=== PATIENT | male | born 1990 | race Caucasian/White ===

== ENCOUNTER 2022-07-17 03:27 | Outpatient (CLI) | payer MEDICAID, SELFPAY ==
[2022-07-17 13:54] LABS: Calculated LDL 58 mg/dL (<100); Cholesterol 140 mg/dL (<200); HDL Cholesterol 58 mg/dL (40-60); Triglyceride 123 mg/dL (<150)
[2022-07-17 14:25] LABS: Hemoglobin A1C 5.4 % (<5.7)
== END 2022-07-17 03:28 | disposition home or self-care (01) ==
LOC: LBO 03:28
PROVIDERS: PCP Nurse Practitioner Family; Visit Provider Nurse Practitioner Family
DX: Z13.220 Encounter for screening for lipoid disorders (principal); Z13.1 Encounter for screening for diabetes mellitus
CPT/HCPCS: 36415; 80061; 83036

== ENCOUNTER 2025-07-27 13:46 | Emergency (ER) | payer OTHER, SELFPAY ==
[2025-07-27] VITALS (15 sets, daily range): BP systolic 131–152; BP diastolic 91–97; PULSE 61–93; RESP 13–18; O2SAT 95–98
--- NOTE | 2025-07-27 13:45 | RT.EKG_ITS ---
APPROVED REPORT Exam: Resting ECG Reason for Exam: Palpatations Patient Location: E HR:84 bpm ECG Measurements Heart Rate 84 AXIS IA 148 P 32 QRSd 96 QRS 8 QT 372 T 20 QTc 440 Conclusion Sinus rhythm...normal P axis, V-rate 60- 99
--- NOTE | 2025-07-27 14:00 | DI.RAD_ITS ---
Exam(s) XR PORTABLE CHEST AP EXAM: XR PORTABLE CHEST AP CLINICAL HISTORY: chest pain TECHNIQUE: 2D digital imaging was performed of the chest. One image was obtained. An AP view was obtained. COMPARISON: No exams were available for comparison FINDINGS: MEDIASTINUM: Normal. HEART: Normal. PULMONARY VASCULATURE: Normal. LUNGS: Clear. PLEURAL SPACE: No pleural effusion or pneumothorax. BONE:Within normal limits for the patient's age. OTHER FINDINGS:Normal. IMPRESSION: No acute pulmonary findings. DATA REPOSITORY: RADIATION DOSE DELIVERED:
--- NOTE | 2025-07-27 14:09 | W.ED.GENAD ---
Discharge Plan Disposition Patient Disposition: Home Condition: Stable Discharge Details Clinical Impression: Chest pain Primary Care Provider: Arnaud Bagley ED Provider: Hernesto Echeverria Home Meds and New Rx's Prescriptions: No Action No Known Home Meds Discharge Instructions Additional Instructions: Your lab work, EKG and chest x-ray were reassuring today. I would recommend following up with your primary care provider for an outpatient stress test. If you feel more ill, have severe worsening pain or new symptoms such as difficulty breathing or persistent vomiting return to the emergency department for reevaluation. Stand Alone Forms: Portal Information [facility] General Mode of arrival: ambulatory. Date/Time Provider Initiated Documentation: 07/27/25 13:51. Limitations to Documentation: no limitations. Information obtained by: patient. History of Present Illness 35 year old M presents to the emergency department with the chief complaint of chest pain, described as moderate, and is localized to the chest. Patient started experiencing this month(s) (1) and it has been intermittent. No relieving factors improve symptom(s), No exacerbating factors reported . Patient notes no other symptoms.. Patient did receive the following treatments prior to arrival, none Related Data Home Medications ?Medication ?Instructions ?Recorded ?Confirmed Unknown [No Known Home Meds] 03/23/21 07/27/25 Allergies Allergy/AdvReac Type Severity Reaction Status Date / Time No Known Allergies Allergy Verified 07/27/25 13:59 General Stated Complaint: Chest Pain Review of Systems All systems reviewed & are unremarkable except as noted in HPI and below Constitutional Constitutional: Denies chills, Denies fever(s) and Denies weakness Cardiovascular Cardiovascular: Reports chest pain and Denies dyspnea Respiratory Respiratory: Denies cough and Denies dyspnea Gastrointestinal Gastrointestinal: Denies abdominal pain, Denies nausea and Denies vomiting Neurologic Neurologic: Denies weakness Exam Const General: no acute distress Orientation: alert [facility] Head: normal to inspection Ears: external ears normal General nose exam: external nose normal Mouth: moist mucous membranes Eyes General: appearance normal, both eyes and all related structures Neck Neck: normal visual inspection Resp Effort & Inspection: normal respiratory effort and able to speak in complete sentences Auscultation: clear to auscultation bilaterally Cardio Jugular venous pressure: no JVD Rate: regular rate Heart Sounds: no murmurs GI Palpation: soft and nontender Skin General skin exam: no rashes or lesions noted Neuro General: patient alert and patient oriented x3 Extrem General: normal to inspection Psych Mental Status: mental status grossly normal Course Vital Signs Vital signs: Vital Signs Pulse 93 H 07/27/25 13:56 Respiratory Rate 16 07/27/25 13:56 Blood Pressure 152/97 H 07/27/25 13:56 Pulse Oximetry 97 07/27/25 13:56 Temperature Source Oral 07/27/25 13:56 Pulse 93 H 07/27/25 13:56 Respiratory Rate 16 07/27/25 13:56 Blood Pressure 152/97 H 07/27/25 13:56 Blood Pressure Position Sitting 07/27/25 13:56 Pulse Oximetry 97 07/27/25 13:56 Oxygen Delivery Method Room Air 07/27/25 13:56 Oxygen Flow Rate 0 07/27/25 13:56 Lab/Test Results Lab/Test Results: Laboratory Tests Range/Units 07/27/25 07/27/25 07/27/25 13:59 15:00 17:00 WBC Cancelled RBC Cancelled Hgb Cancelled Hct Cancelled MCV Cancelled MCH Cancelled MCHC Cancelled RDW Cancelled Plt Count Cancelled MPV Cancelled Immature Gran % Cancelled Neutrophils % Cancelled Band Neutrophils % Cancelled Lymphocytes % Cancelled Atypical Lymphs % Cancelled Monocytes % Cancelled Eosinophils % Cancelled Basophils % Cancelled Metamyelocytes % Cancelled Myelocytes % Cancelled Promyelocytes % Cancelled Other Cells % Cancelled Nucleated RBC % Cancelled Absolute Neutrophils Cancelled Absolute Lymphocytes Cancelled Absolute Monocytes Cancelled Absolute Eosinophils Cancelled Absolute Basophils Cancelled RBC Morphology Cancelled Polychromasia Cancelled Hypochromasia Cancelled Poikilocytosis Cancelled Basophilic Stippling Cancelled Anisocytosis Cancelled Microcytosis Cancelled Macrocytosis Cancelled Spherocytes Cancelled Tear Drop Cells Cancelled Ovalocytes Cancelled Stomatocytes Cancelled [place] Bodies Cancelled [place] Cells/Echinocytes Cancelled Acanthocytes (Spur) Cancelled Schistocytes Cancelled Troponin I Cancelled Cancelled Medical Decision Making 35-year-old male who denies any chronic medical problems and is a non-smoker comes in with intermittent chest pain for a month. He says that it will intermittently radiate to his jaw. Denies any diaphoresis, nausea vomiting, shortness of breath. He is well-appearing speaking full sentences. He currently has no pain. He is oriented x 4, has clear lung sounds, no JVD, no abdominal tenderness, no leg swelling or calf tenderness. Given his complaints we will check CBC CMP and troponins. Will also check a lipase. He has no tearing back pain and has equal peripheral pulses so I doubt dissection. He is Wells score low and PERC negative so I doubt PE. Patient's labs and x-ray unremarkable. Delta troponin also negative. Patient's heart score is 2 so I feel he is stable for discharge and can follow-up with his PCP as an outpatient. Return precautions given. Differential Diagnosis Differential Diagnosis: nstemi,angina, esophageal spasm Lab Data Lab results reviewed: Yes I reviewed the patient's lab results. ECG Data Attestation: I personally reviewed and interpreted this ECG (s) as follows: Prior ECG tracings: not available for review Interpretation: sinus rate of 84 no stemi PFSH All Active Problems (Updated 07/27/25 @ 15:43 by Hernesto Echeverria MD) Chest pain (Acute) Swallowing difficulty (Acute) Allergic rhinitis (Acute) Surgical History (Updated 05/12/22 @ 08:19 by Arnaud Bagley NP) H/O vasectomy Family History (Updated 02/14/21 @ 10:27 by Anuja Fernandez) Mother No problems noted. Father Heart disease Sister No problems noted. Daughter No problems noted. Daughter No problems noted. Maternal Grandfather , 70'S Alcohol abuse Cancer Paternal Grandfather , 70'S Heart disease Maternal Grandmother No problems noted. Paternal Grandmother , 70'S No problems noted. Social History (Updated 05/17/22 @ 06:53 by Elvie Nobles) Smoking/Tobacco Use Status: Current-Occasional Tobacco Type: smokeless tobacco Tobacco: How many years used: 8 Smokeless tobacco user: chewing tobacco Quit status: considering quitting Second Hand Exposure: Yes Smoking risk assessment performed?: Yes Alcohol Intake: current Alcohol Intake frequency: a few times a week Alcohol type: beer Drug use: Never Substance use type: does not use Foster care: No Household members: spouse and children Housing: house Communication Needs: None Do you need help understanding health information?: Rarely Pets and animals: Yes Pets and animals: dog(s) Sexually active: Yes Do you think of yourself as: straight/heterosexual Current gender identity: male What is your relationship status?: How often do you talk on the phone with friends or family?: three or more times per week How often do you get together with friends or relatives?: once per week How often do you attend orthodoxy or yarsanism services?: 1-3 times per year Do you belong to any clubs or organized social groups?: no Panel score (0-1 are the most socially isolated patients): 2 What type of physical activity do you participate in: none Steff/Druze: None Seatbelt use: sometimes Helmet use: Yes Helmet use: sometimes Drive intox or ride w/intox gas truck driver: No
[2025-07-27 14:16] LABS: Abs Immature Grans 0.01 10^3/uL (0.0-0.06); HCT 41.0 % (40.0-50.0); HGB 14.3 g/dL (13.5-17.5); Immature Grans % 0.2 %; MCH 29.5 pg (27.0-33.0); MCHC 34.9 % (32.0-36.0); MCV 85 fL (80-95); MPV 8.7 fL (8.0-11.0); Platelet Count 268 10^3/uL (130-400); RBC 4.85 10^6/uL (4.36-5.78); RDW 11.8 % (11.8-14.1); RDW-SD 35.8 fL; WBC 4.93 10^3/uL (4.4-10.8)
[2025-07-27 14:32] LABS: Lipase 48 U/L (<53); Magnesium 2.0 mg/dL (1.6-2.6)
[2025-07-27 14:33] LABS: Troponin I 5 ng/L (<54)
[2025-07-27 14:34] LABS: ALT 28 U/L (10-49); AST 23 U/L (<34); Albumin 4.5 g/dL (3.2-5.0); Alkaline Phosphatase 85 U/L (46-116); Anion Gap 9.4 mmol/L (3-11); BUN 9 mg/dL (9-23); Bilirubin, Total 0.6 mg/dL (0.2-1.2); CO2 26.6 mmol/L (20.0-31.0); Calcium 9.3 mg/dL (8.3-10.6); Chloride 106 mmol/L (98-107); Glucose 90 mg/dL (74-106); Potassium 3.8 mmol/L (3.5-5.1); Sodium 142 mmol/L (136-145); Total Protein 7.6 g/dL (5.7-8.2)
[2025-07-27 14:37] LABS: TSH (W/Ref FT4) 0.86 uIU/mL (0.55-4.78)
[2025-07-27 15:25] LABS: Troponin I 5 ng/L (<54)
== END 2025-07-27 15:54 | disposition home or self-care (01) ==
LOC: ER 15:59
PROVIDERS: Emergency Provider Emergency Medicine; PCP Nurse Practitioner Family
DX: R07.9 Chest pain, unspecified (principal)
CPT/HCPCS: 99284; 99285; 36415; 80053; 83690; 93005; 71045; 83735; 84443; 84484; 85025; 93010